=== PATIENT | male | born 1985 | race Caucasian/White ===

== ENCOUNTER 2016-07-15 21:14 | Emergency (ER) | payer SELFPAY ==
[~2016-07-15] VITALS: Ht 182.9 cm; Wt 81.8 kg
[~2016-07-15 21:14] MED LIST: BACTRIM DS 8001 TAB PO; CELEXA40 MG PO; CLONAZEPAM0.5 MG PO; DEPAKOTE500 MG PO; DESYREL 50MG50 MG PO; EPITOL200 MG PO; ESCITALOPRAM; HYDROCODONE/APAP; LORTAB 5/500 501 TAB PO; NO HOME MEDICATIONS; PERCOCET 5/321 UDTAB PO; PHENERGAN 25 TA25 MG PO; PHENERGAN25 MG RC; PROPRANOLOL10 MG PO
[2016-07-15 21:16] VITALS: TEMP 98.4
[2016-07-15 21:55] LABS: BASO % 0.3 % (0.0-2.0); EOS # 0.1 (0.0-0.7); EOS % 1.7 % (0-4.0); GRAN # 3.7 (1.4-6.5); GRAN % 53.2 % (42.2-75.2); HEMATOCRIT 41.8 % (42.0-52.0); HEMOGLOBIN 14.8 g/dl (13.5-18.0); LYMPH # 2.8 (1.2-3.4); LYMPH % 39.9 % (20.0-51.0); MEAN CELL VOLUME 90 fl (80.0-100.0); MEAN CORPUSCULAR HEMOGLOBIN 32 pg (27.0-31.0); MEAN CORPUSCULAR HGB CONC 35 g/dl (33.0-37.0); MEAN PLATELET VOLUME 10.6 fl (7.4-10.4); MONO # 0.3 (0.1-0.6); MONO % 4.6 % (1.7-9.3); PLATELET COUNT 138 K/mm3 (130-400); RED BLOOD COUNT 4.66 M/mm3 (4.20-5.60); REDCELL DISTRIBUTION WIDTH-CV 12.3 % (11.5-14.5); WHITE BLOOD COUNT 6.9 K/mm3 (4.8-10.8)
[2016-07-15 22:07] LABS: ADJUSTED CALCIUM 9.4 mg/dL (8.4-10.2); ALANINE AMINOTRANSFERASE 32 U/L (21-72); ALBUMIN 3.9 gm/dL (3.5-5.0); ALKALINE PHOSPHATASE 65 U/L (50-136); ANION GAP 10 mmol/L (7-16); BILIRUBIN,TOTAL 0.5 mg/dL (0.0-1.0); BLOOD UREA NITROGEN 16 mg/dL (9-20); C-REACTIVE PROTEIN 0.7 mg/dL (0.0-0.9); CALCIUM 9.3 mg/dL (8.4-10.2); CARBON DIOXIDE 24 mmol/L (22-30); CHLORIDE 106 mmol/L (98-107); CREATININE, serum 0.94 mg/dL (0.66-1.25); GLUCOSE 107 mg/dL (74-106); POTASSIUM 3.6 mmol/L (3.4-5.0); SODIUM 140 mmol/L (137-145); TOTAL PROTEIN 6.2 gm/dL (6.4-8.2)
[2016-07-15 22:16] LABS: TROPONIN-I < 0.012 ng/mL (0.000-0.034)
[2016-07-15 22:40] VITALS: BP 125/66; PULSE 61
== END 2016-07-15 22:34 | disposition home or self-care (01) ==
LOC: COL.ER 21:14
PROVIDERS: Family Medicine
DX: R07.81 Pleurodynia (principal); R07.89 Other chest pain

== ENCOUNTER 2017-06-17 02:46 | Emergency (ER) | payer SELFPAY ==
[~2017-06-17] VITALS: Ht 180.3 cm; Wt 79.5 kg
[2017-06-17 02:47] VITALS: TEMP 99.2
[2017-06-17 03:28] LABS: BASO % 0.2 % (0.0-2.0); GRAN # 3.3 (1.4-6.5); GRAN % 77.3 % (42.2-75.2); HEMATOCRIT 45.4 % (42.0-52.0); LYMPH # 0.6 (1.2-3.4); LYMPH % 13.6 % (20.0-51.0); MEAN CELL VOLUME 89 fl (80.0-100.0); MEAN CORPUSCULAR HEMOGLOBIN 31 pg (27.0-31.0); MEAN CORPUSCULAR HGB CONC 35 g/dl (33.0-37.0); MEAN PLATELET VOLUME 10.5 fl (7.4-10.4); MONO # 0.4 (0.1-0.6); MONO % 8.7 % (1.7-9.3); PLATELET COUNT 115 K/mm3 (130-400); RED BLOOD COUNT 5.09 M/mm3 (4.20-5.60); REDCELL DISTRIBUTION WIDTH-CV 12.3 % (11.5-14.5)
[2017-06-17 03:41] LABS: ALBUMIN 4.4 gm/dL (3.5-5.0); BILIRUBIN,TOTAL 0.4 mg/dL (0.0-1.0); C-REACTIVE PROTEIN 3.5 mg/dL (0.0-0.9); CALCIUM 9.4 mg/dL (8.4-10.2); CREATININE, serum 1.04 mg/dL (0.66-1.25); POTASSIUM 3.8 mmol/L (3.4-5.0); TOTAL PROTEIN 7.1 gm/dL (6.4-8.2)
[2017-06-17 04:19] LABS: COLLECTION METHOD CLEAN CATCH
[2017-06-17 04:25] LABS: MUCOUS Present /lpf; PH 6 (5-8); SQUAMOUS EPITHELIAL None Seen /hpf; URINE APPEARANCE Clear; URINE BACTERIA None Seen /hpf; URINE BILIRUBIN Negative (NEGATIVE); URINE BLOOD 2+ (NEGATIVE); URINE COLOR Yellow; URINE GLUCOSE Negative (NEGATIVE); URINE KETONE 2+ (NEGATIVE); URINE LEUKOCYTE ESTERASE Negative (NEGATIVE); URINE NITRATE Negative (NEGATIVE); URINE PROTEIN(semi-quant) Negative (NEGATIVE); URINE UROBILINOGEN Negative (NEGATIVE)
[2017-06-17] MEDS ORDERED: ZOFRAN ODT4 MG PO (04:28)
[2017-06-17 04:45] VITALS: BP 125/85; PULSE 80
== END 2017-06-17 04:50 | disposition home or self-care (01) ==
LOC: COL.ER 02:46
PROVIDERS: Family Medicine
DX: J10.1 Influenza due to other identified influenza virus with other respiratory manifestations (principal); Z87.891 Personal history of nicotine dependence
CPT/HCPCS: J2405; J7030

== ENCOUNTER 2020-08-22 14:35 | Emergency (ER) | payer SELFPAY ==
[~2020-08-22] VITALS: Ht 182.9 cm; Wt 72.7 kg
[~2020-08-22 14:35] MED LIST changes: +CRUTCHES MC; +ZOFRAN ODT4 MG PO
[2020-08-22 14:43] VITALS: BP 109/85; TEMP 98.2
[2020-08-22 16:23] VITALS: PULSE 99
== END 2020-08-22 16:23 | disposition home or self-care (01) ==
LOC: COL.ER 14:35
DX: S81.811A Laceration without foreign body, right lower leg, initial encounter (principal); F17.210 Nicotine dependence, cigarettes, uncomplicated; Z88.6 Allergy status to analgesic agent; W25.XXXA Contact with sharp glass, initial encounter

== ENCOUNTER 2021-02-10 00:46 | Emergency (ER) | payer SELFPAY ==
[~2021-02-10] VITALS: Ht 182.9 cm; Wt 77.3 kg
[2021-02-10] MEDS ORDERED: VALTREX1 GM PO (01:08)
[2021-02-10 01:31] VITALS: BP 125/84; PULSE 78; TEMP 98.4
== END 2021-02-10 01:32 | disposition home or self-care (01) ==
LOC: COL.ER 00:46
DX: B02.9 Zoster without complications (principal)

== ENCOUNTER 2023-11-26 23:16 | Emergency (ER) | payer SELFPAY ==
[~2023-11-26] VITALS: Ht 182.9 cm; Wt 72.7 kg
[~2023-11-26 23:16] MED LIST changes: +VALTREX1 GM PO
[2023-11-26 23:32] VITALS: BP 115/78; PULSE 81; TEMP 98.4
[2023-11-27] MEDS ORDERED: Doxycycline Monohydrate 100 MG CAP PO ONE (00:30)
[2023-11-27] MEDS ORDERED: dexAMETHasone 10 MG/ML VIAL PO ONE (00:30)
[2023-11-27] MEDS ORDERED: DOXYCYCLINE 10100 MG PO (00:52)
== END 2023-11-27 01:03 | disposition home or self-care (01) ==
LOC: COL.ER 23:16
DX: L08.9 Local infection of the skin and subcutaneous tissue, unspecified (principal)
CPT/HCPCS: J1100